=== PATIENT | male | born 1985 | race Two or more races ===

== ENCOUNTER 2021-12-13 11:56 | Inpatient (IN) | payer OTHER ==
[2021-12-13] MEDS ORDERED: LOPERAMIDE HCL 2 MG CAPSULE PO PRN (13:14)
[2021-12-13] MEDS ORDERED: NICOTINE 10 MG CARTRIDGE (INHALER) IH PRN (13:14)
[2021-12-13] MEDS ORDERED: BISMUTH SUBSALICYLATE 262 MG/15 ML BTL PO PRN (13:14)
[2021-12-13] MEDS ORDERED: MAGNESIUM CITRATE 300 ML BOTTLE PO PRN (13:14)
[2021-12-13] MEDS ORDERED: DICYCLOMINE HCL 10 MG CAPSULE PO PRN (13:14)
[2021-12-13] MEDS ORDERED: cloNIDine HCL 0.1 MG TABLET PO PRN (13:14)
[2021-12-13] MEDS ORDERED: ACETAMINOPHEN 325 MG TABLET (FP) PO PRN ×2 (13:14)
[2021-12-13] MEDS ORDERED: BENZOCAINE/MENTHOL (CHLORASEPTIC ) LOZENGE MM PRN (13:14)
[2021-12-13] MEDS ORDERED: IBUPROFEN 400 MG TABLET (FP) PO PRN (13:14)
[2021-12-13] MEDS ORDERED: METHOCARBAMOL 500 MG TABLET PO PRN (13:14)
[2021-12-13] MEDS ORDERED: ONDANSETRON *ODT* 4 MG TABLET SL PRN (13:14)
[2021-12-13] MEDS ORDERED: MAGNESIUM HYDROX 2400MG/30ML ORAL SUSPENSION 30 ML CUP PO PRN (13:14)
[2021-12-13] MEDS ORDERED: MAG HYDROX/AL HYDROX/SIMETH 30 ML UNIT-DOSE CUP PO PRN (13:14)
[2021-12-13] MEDS ORDERED: PRENATAL VITAMINS W/ FOLIC ACID TABLET (FP) PO SCH (13:15)
[2021-12-13 13:30] VITALS: BMI 24.0
[2021-12-13] MEDS ORDERED: methaDONE HCL 10 MG TABLET (FOR DETOX USE ONLY) PO ONE (14:15)
[2021-12-13] MEDS ORDERED: NICOTINE 14 MG/24 HOURS TOPICAL PATCH TD SCH (14:15)
[2021-12-13] MEDS ORDERED: ALBUTEROL SO4 HFA INHALER IH PRN (16:02)
[2021-12-13 16:31] LABS: CALCIUM 9.1 mg/dL (8.5-10.1)
[2021-12-13 16:32] LABS: ALBUMIN 3.6 g/dl (3.4-5.0); BLOOD UREA NITROGEN 11.3 mg/dL (7-18)
[2021-12-13 16:35] LABS: CREATININE 0.8 mg/dL (0.55-1.3)
[2021-12-13 16:36] LABS: BILIRUBIN,TOTAL 0.9 mg/dL (0.2-1); TOT PROT 7.9 g/dl (6.4-8.2)
[2021-12-13 16:46] LABS: HEMATOCRIT 38.6 % (35.4-49); HEMOGLOBIN 12.6 GM/dL (11.7-16.9); MCHC 32.5 g/dl (32.0-35.9); MEAN CELL VOLUME 86.1 fl (80-96); PLATELET COUNT 176 10^3/uL (134-434); RBC 4.49 M/mm3 (4.00-5.60); RDW 14.3 % (11.9-15.9)
[2021-12-13] MEDS: hydrOXYzine PAMOATE 25 MG CAPSULE (FP) PO SCH ×3 (17:38→22:21)
[2021-12-13] MEDS ORDERED: MELATONIN 5 MG TABLETS PO SCH (22:00)
[2021-12-13] MEDS ORDERED: THIAMINE HCL 100 MG TABLET (FP) PO SCH (22:00)
[2021-12-14 07:00] VITALS: TEMP 97.5
[2021-12-14] MEDS: hydrOXYzine PAMOATE 25 MG CAPSULE (FP) PO SCH (07:16)
[2021-12-14] MEDS ORDERED: methaDONE HCL 10 MG TABLET (FOR DETOX USE ONLY) ONE (09:12)
[2021-12-14 09:16] VITALS: BP 103/60; PULSE 61
[2021-12-14] MEDS ORDERED: diazePAM 5 MG TABLET PO PRN (10:32)
[2021-12-15] MEDS ORDERED: methaDONE HCL 10 MG TABLET (FOR DETOX USE ONLY) PO ONE (10:00)
[2021-12-17] MEDS ORDERED: methaDONE HCL 10 MG TABLET (FOR DETOX USE ONLY) PO ONE (10:00)
== END 2021-12-14 10:25 | disposition left against medical advice (07) | DRG 770 ==
LOC: YASAS 11:56 → Y3N 15:39
PROVIDERS: ADMIT Allergy & Immunology; ATTEND Allergy & Immunology
PROC: HZ2ZZZZ Detoxification Services for Substance Abuse Treatment (ICD-10-PCS; principal; 2021-12-13)
DX: F11.23 Opioid dependence with withdrawal (principal); F10.20 Alcohol dependence, uncomplicated; F14.20 Cocaine dependence, uncomplicated; F90.9 Attention-deficit hyperactivity disorder, unspecified type; F32.A Depression, unspecified; J45.909 Unspecified asthma, uncomplicated; M54.50 Low back pain, unspecified; G89.29 Other chronic pain; R63.4 Abnormal weight loss; Z68.24 Body mass index [BMI] 24.0-24.9, adult; Z88.0 Allergy status to penicillin
CPT/HCPCS: 36415; 80053; 85027; 86780; 87811; 93005; 93010; C9803-CS; U0003; U0005

== ENCOUNTER 2021-12-18 11:01 | Inpatient (IN) | payer OTHER ==
[2021-12-18] MEDS ORDERED: NICOTINE 10 MG CARTRIDGE (INHALER) IH PRN (11:54)
[2021-12-18] MEDS ORDERED: LOPERAMIDE HCL 2 MG CAPSULE PO PRN (11:54)
[2021-12-18] MEDS ORDERED: METHOCARBAMOL 500 MG TABLET PO PRN (11:54)
[2021-12-18] MEDS ORDERED: IBUPROFEN 400 MG TABLET (FP) PO PRN (11:54)
[2021-12-18] MEDS ORDERED: ONDANSETRON *ODT* 4 MG TABLET SL PRN (11:54)
[2021-12-18] MEDS ORDERED: MAG HYDROX/AL HYDROX/SIMETH 30 ML UNIT-DOSE CUP PO PRN (11:54)
[2021-12-18] MEDS ORDERED: MAGNESIUM HYDROX 2400MG/30ML ORAL SUSPENSION 30 ML CUP PO PRN (11:54)
[2021-12-18] MEDS ORDERED: BISMUTH SUBSALICYLATE 262 MG/15 ML BTL PO PRN (11:54)
[2021-12-18] MEDS ORDERED: DICYCLOMINE HCL 10 MG CAPSULE PO PRN (11:54)
[2021-12-18] MEDS ORDERED: BUPRENORPHINE HCL 150 MCG, BUPRENORPHINE HCL 75 MCG BC PRN (11:54)
[2021-12-18] MEDS ORDERED: ACETAMINOPHEN 325 MG TABLET (FP) PO PRN ×2 (11:54)
[2021-12-18] MEDS ORDERED: BENZOCAINE/MENTHOL (CHLORASEPTIC ) LOZENGE MM PRN (11:54)
[2021-12-18] MEDS ORDERED: MAGNESIUM CITRATE 300 ML BOTTLE PO PRN (11:54)
[2021-12-18] MEDS ORDERED: cloNIDine HCL 0.1 MG TABLET PO ONE (11:54)
[2021-12-18] MEDS ORDERED: BUPRENORPHINE HCL 150 MCG, BUPRENORPHINE HCL 75 MCG BC ONE (11:54)
[2021-12-18] MEDS ORDERED: ALBUTEROL SO4 HFA INHALER IH PRN (11:59)
[2021-12-18 12:37] VITALS: BMI 23.8
[2021-12-18] MEDS ORDERED: BUPRENORPHINE HCL 75 MCG FILM BC ONE (12:57)
[2021-12-18] MEDS ORDERED: BUPRENORPHINE HCL 150 MCG FILM BC ONE (12:57)
[2021-12-18] MEDS ORDERED: cloNIDine HCL 0.1 MG TABLET ONE (12:57)
[2021-12-18] MEDS: NICOTINE 14 MG/24 HOURS TOPICAL PATCH TD SCH (13:48)
[2021-12-18] MEDS: hydrOXYzine PAMOATE 25 MG CAPSULE (FP) PO SCH ×3 (13:48→22:07)
[2021-12-18] MEDS ORDERED: cloNIDine HCL 0.1 MG TABLET PO PRN (15:54)
[2021-12-18] MEDS: diazePAM 5 MG TABLET PO PRN (17:32)
[2021-12-18] MEDS ORDERED: MELATONIN 5 MG TABLETS PO SCH (22:00)
[2021-12-18] MEDS ORDERED: THIAMINE HCL 100 MG TABLET (FP) PO SCH (22:00)
[2021-12-19] MEDS ORDERED: BUPRENORPHINE HCL 150 MCG, BUPRENORPHINE HCL 75 MCG BC PRN
[2021-12-19] MEDS ORDERED: BUPRENORPHINE HCL 150 MCG FILM BC ONE (04:26)
[2021-12-19] MEDS ORDERED: BUPRENORPHINE HCL 75 MCG FILM BC ONE (04:27)
[2021-12-19] MEDS: hydrOXYzine PAMOATE 25 MG CAPSULE (FP) PO SCH ×2 (05:22→10:21)
[2021-12-19] MEDS: diazePAM 5 MG TABLET PO PRN (05:25)
[2021-12-19] MEDS ORDERED: BUPRENORPHINE HCL 150 MCG, BUPRENORPHINE HCL 75 MCG BC SCH (06:00)
[2021-12-19 09:00] VITALS: BP 116/74; PULSE 64; TEMP 97.5
[2021-12-19] MEDS ORDERED: PRENATAL VITAMINS W/ FOLIC ACID TABLET (FP) PO SCH (10:00)
[2021-12-19] MEDS: NICOTINE 14 MG/24 HOURS TOPICAL PATCH TD SCH (10:21)
[2021-12-19] MEDS ORDERED: methaDONE HCL 10 MG TABLET (FOR DETOX USE ONLY) PO ONE (10:30)
[2021-12-19] MEDS ORDERED: cloNIDine HCL 0.1 MG TABLET PO PRN (10:30)
[2021-12-19] MEDS ORDERED: diazePAM 5 MG TABLET PO PRN (10:32)
[2021-12-20] MEDS ORDERED: BUPRENORPHINE HCL 450 MCG FILM BC SCH (06:00)
[2021-12-20 08:09] LABS: SARS-CoV-2 NAA Not Detected (Not Detected)
[2021-12-21] MEDS ORDERED: BUPRENORPHINE/NALOXONE 4 MG/1 MG FILM PACKET SL SCH (06:00)
[2021-12-21] MEDS ORDERED: methaDONE HCL 10 MG TABLET (FOR DETOX USE ONLY) PO ONE (10:00)
[2021-12-22] MEDS ORDERED: BUPRENORPHINE/NALOXONE 8 MG/2 MG FILM PACKET SL ONE (06:00)
[2021-12-23] MEDS ORDERED: methaDONE HCL 10 MG TABLET (FOR DETOX USE ONLY) PO ONE (10:00)
== END 2021-12-19 12:21 | disposition left against medical advice (07) | DRG 770 ==
LOC: YASAS 11:01 → Y3N 13:05
PROVIDERS: ADMIT Allergy & Immunology; ATTEND Allergy & Immunology
PROC: HZ2ZZZZ Detoxification Services for Substance Abuse Treatment (ICD-10-PCS; principal; 2021-12-18)
DX: F11.23 Opioid dependence with withdrawal (principal); F14.20 Cocaine dependence, uncomplicated; F12.20 Cannabis dependence, uncomplicated; F17.210 Nicotine dependence, cigarettes, uncomplicated; F90.9 Attention-deficit hyperactivity disorder, unspecified type; F32.A Depression, unspecified; B18.2 Chronic viral hepatitis C; K21.9 Gastro-esophageal reflux disease without esophagitis; M54.50 Low back pain, unspecified; G89.29 Other chronic pain; Z28.310 Unvaccinated for COVID-19; Z88.0 Allergy status to penicillin
CPT/HCPCS: 87811; C9803-CS; J0735; U0003; U0005